=== PATIENT | female | born 1945 | race Asian ===

== ENCOUNTER 2020-04-21 11:40 | Inpatient (IN) | payer OTHER ==
[~2020-04-21] VITALS: Ht 152.4 cm; Wt 54.4 kg
[2020-04-21] MEDS ORDERED: ACID CONTROL150 MG PO (13:05)
[2020-04-21] MEDS ORDERED: GLIMEPIRIDE1 M1 PO (13:05)
[2020-04-21] MEDS ORDERED: PRAVASTATIN SOD10 MG PO (13:06)
[2020-04-21] MEDS ORDERED: ZESTRIL2.5 MG PO (13:06)
[2020-05-02] MEDS ORDERED: ZESTRIL40 M1 PO (08:24)
[2020-05-02] MEDS ORDERED: GLIMEPIRIDE2 M1 PO (08:24)
[2020-05-02] MEDS ORDERED: RANITIDINE HCL300 MG PO (08:25)
[2020-05-02] MEDS ORDERED: PRAVASTATIN SOD20 MG PO (08:26)
[2020-05-02] MEDS ORDERED: PLAVIX75 MG PO (08:26)
[2020-05-03] MEDS ORDERED: ULTRACET PO (13:44)
== END 2020-05-03 14:25 | disposition home or self-care (01) | DRG 334 ==
LOC: RECOVERY 11:40 → SURH 05-02 06:30 → O/R 05-02 06:30 → SURH 05-02 11:13 → RECOVERY 05-02 13:00 → SURH 05-03 14:25
PROVIDERS: ADMIT Surgery; ATTEND Surgery
PROC: 0DQR0ZZ Repair Anal Sphincter, Open Approach (ICD-10-PCS; 2020-05-02)
PROC: 0DBP0ZZ Excision of Rectum, Open Approach (ICD-10-PCS; principal; 2020-05-02 08:15)
DX: K62.3 Rectal prolapse (principal); E11.9 Type 2 diabetes mellitus without complications; I10 Essential (primary) hypertension; R15.9 Full incontinence of feces

== ENCOUNTER 2020-12-28 10:15 | Inpatient (IN) | payer OTHER ==
[~2020-12-28] VITALS: Ht 152.4 cm; Wt 45.4 kg
[~2020-12-28 10:15] MED LIST: ACID CONTROL150 MG PO; GLIMEPIRIDE1 M1 PO; GLIMEPIRIDE2 M1 PO; PLAVIX75 MG PO; PRAVASTATIN SOD10 MG PO; PRAVASTATIN SOD20 MG PO; RANITIDINE HCL300 MG PO; ULTRACET PO; ZESTRIL2.5 MG PO; ZESTRIL40 M1 PO
[2020-12-28] MEDS ORDERED: LEVOTHYROXINE25 MCG PO (13:34)
[2021-01-02] MEDS ORDERED: OMEPRAZOLE20 MG (08:47)
[2021-01-02] MEDS ORDERED: CLEARLAX119 GM (08:47)
[2021-01-02] MEDS ORDERED: ST. JOSEPH ASPI81 M2 (08:47)
[2021-01-02] MEDS ORDERED: HEMORRHOIDAL OI57 G2 (08:47)
[2021-01-04] MEDS ORDERED: INTESTINEX680 M1 PO (08:30)
[2021-01-04] MEDS ORDERED: ULTRACET PO (08:30)
[2021-01-04] MEDS ORDERED: RECTICARE30 GM TOP (08:31)
[2021-01-04] MEDS ORDERED: PEPCID AC20 MG PO (08:32)
[2021-01-04] MEDS ORDERED: FLAGYL500MG PO (08:32)
== END 2021-01-04 10:55 | disposition home or self-care (01) | DRG 349 ==
LOC: O/R 01-02 05:50 → SURG 01-02 05:50 → SURH 01-02 06:45 → OB/GYN 01-02 10:41 → O/R 01-02 11:58 → SURG 01-02 11:59
PROVIDERS: ADMIT Surgery; ATTEND Surgery
PROC: 0KXM0ZZ Transfer Perineum Muscle, Open Approach (ICD-10-PCS; 2021-01-02)
PROC: 0DBP7ZZ Excision of Rectum, Via Natural or Artificial Opening (ICD-10-PCS; principal; 2021-01-02 06:45)
DX: K62.3 Rectal prolapse (principal); L92.0 Granuloma annulare; I10 Essential (primary) hypertension; E11.9 Type 2 diabetes mellitus without complications; E03.9 Hypothyroidism, unspecified

== ENCOUNTER 2022-03-22 08:15 | Inpatient (IN) | payer OTHER ==
[~2022-03-22] VITALS: Ht 152.4 cm; Wt 54.4 kg
[~2022-03-22 08:15] MED LIST changes: +CLEARLAX119 GM; +FLAGYL500MG PO; +HEMORRHOIDAL OI57 G2; +INTESTINEX680 M1 PO; +LEVOTHYROXINE25 MCG PO; +OMEPRAZOLE20 MG; +PEPCID AC20 MG PO; +RECTICARE30 GM TOP; +ST. JOSEPH ASPI81 M2
[2022-03-28] MEDS ORDERED: ULTRACET PO (08:43)
[2022-03-28] MEDS ORDERED: MOXIFLOXACIN H400 MG PO (08:43)
[2022-03-28] MEDS ORDERED: AQUAPHOR HEALIN50 GM TOP (08:44)
[2022-03-28] MEDS ORDERED: INTESTINEX680 M1 PO (08:44)
== END 2022-03-28 12:28 | disposition home or self-care (01) | DRG 349 ==
LOC: O/R 03-26 06:21 → SURH 03-26 06:21
PROVIDERS: ADMIT Surgery; ATTEND Surgery
PROC: 0DBP7ZZ Excision of Rectum, Via Natural or Artificial Opening (ICD-10-PCS; principal; 2022-03-26 06:45)
DX: K62.3 Rectal prolapse (principal); R19.4 Change in bowel habit; R19.5 Other fecal abnormalities; R15.2 Fecal urgency; R15.9 Full incontinence of feces; L29.0 Pruritus ani; I10 Essential (primary) hypertension; E11.9 Type 2 diabetes mellitus without complications